=== PATIENT | female | born 1965 | race African-American/Black ===

== ENCOUNTER 2017-06-02 08:51 | Emergency (ER) | payer SELFPAY ==
[2017-06-02] MEDS ORDERED: Lidocaine 1% 20 ML MDV ONE (09:07)
[2017-06-02] MEDS ORDERED: Adacel (T-DAP) 0.5 ML VIAL ONE (09:30)
== END 2017-06-02 09:40 | disposition home or self-care (01) ==
LOC: NAV ERS 08:51
DX: L02.421 Furuncle of right axilla (principal); J06.9 Acute upper respiratory infection, unspecified; F17.210 Nicotine dependence, cigarettes, uncomplicated
CPT/HCPCS: 10060; 87070; 87077; 87186; 87205; 90471; 90715; J2001

== ENCOUNTER 2017-06-04 11:10 | Emergency (ER) | payer SELFPAY | END 2017-06-04 11:49 | disposition home or self-care (01) | LOC: NAV ERS 11:10 | DX: Z48.817 Encounter for surgical aftercare following surgery on the skin and subcutaneous tissue (principal); Z48.01 Encounter for change or removal of surgical wound dressing; F17.210 Nicotine dependence, cigarettes, uncomplicated | CPT/HCPCS: 96372; J2270 ==

== ENCOUNTER 2017-06-07 08:04 | Emergency (ER) | payer SELFPAY | END 2017-06-07 08:48 | disposition home or self-care (01) | LOC: NAV ERS 08:04 | DX: Z48.817 Encounter for surgical aftercare following surgery on the skin and subcutaneous tissue (principal); Z48.01 Encounter for change or removal of surgical wound dressing; F17.210 Nicotine dependence, cigarettes, uncomplicated | CPT/HCPCS: 99282 ==

== ENCOUNTER 2017-06-09 12:45 | Emergency (ER) | payer SELFPAY | END 2017-06-09 13:10 | disposition home or self-care (01) | LOC: NAV ERS 12:45 | DX: L02.421 Furuncle of right axilla (principal); F17.210 Nicotine dependence, cigarettes, uncomplicated; Z79.899 Other long term (current) drug therapy | CPT/HCPCS: 99282 ==

== ENCOUNTER 2019-02-22 09:14 | Emergency (ER) | payer SELFPAY ==
[2019-02-22 10:00] LABS: Bilirubin Negative (Negative); Blood, Urine Negative (Negative); Clarity Clear (Clear); Glucose, Urine (Dipstick) Negative (Negative); Leukocyte Negative (Negative); Nitrite Negative (Negative); Protein, Urine (Dipstick) Negative (Neg-Trace)
== END 2019-02-22 10:47 | disposition home or self-care (01) ==
LOC: NAV ERS 09:14
DX: J02.9 Acute pharyngitis, unspecified (principal); M54.5 Low back pain; F17.210 Nicotine dependence, cigarettes, uncomplicated
CPT/HCPCS: 81003; 87081; 87430; 99283

== ENCOUNTER 2019-04-11 10:27 | Emergency (ER) | payer SELFPAY ==
[2019-04-11] MEDS ORDERED: Acetaminophen 500 MG TAB ONE ×2 (10:40→10:41)
[2019-04-11] MEDS ORDERED: Ketorolac Tromethamine 60 MG/2 ML VIAL ONE (10:41)
[2019-04-11] MEDS ORDERED: Bacitracin 1 PK ONE (10:59)
== END 2019-04-11 11:31 | disposition home or self-care (01) ==
LOC: NAV ERS 10:27
DX: T23.241A Burn of second degree of multiple right fingers (nail), including thumb, initial encounter (principal); T31.0 Burns involving less than 10% of body surface; F17.210 Nicotine dependence, cigarettes, uncomplicated; X10.1XXA Contact with hot food, initial encounter
CPT/HCPCS: 16000; 96372; J1885

== ENCOUNTER 2019-12-12 10:55 | Emergency (ER) | payer OTHER, SELFPAY | END 2019-12-12 11:25 | disposition home or self-care (01) | LOC: NAV ERS 10:55 | DX: R05 Cough (principal); F17.210 Nicotine dependence, cigarettes, uncomplicated; Z71.6 Tobacco abuse counseling | CPT/HCPCS: 99406 ==

== ENCOUNTER 2019-12-24 14:08 | Emergency (ER) | payer OTHER, SELFPAY ==
[2019-12-24] MEDS ORDERED: Ibuprofen 200 MG TAB ONE (14:27)
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
== END 2019-12-24 15:09 | disposition home or self-care (01) ==
LOC: NAV ERS 14:08
DX: S16.1XXA Strain of muscle, fascia and tendon at neck level, initial encounter (principal); F17.210 Nicotine dependence, cigarettes, uncomplicated; V43.52XA Car driver injured in collision with other type car in traffic accident, initial encounter
CPT/HCPCS: 72125